=== PATIENT | female | born 1970 | race Caucasian/White ===

== ENCOUNTER 2017-02-25 00:14 | Emergency (ER) | payer MEDICAID ==
[~2017-02-25] VITALS: Ht 162.6 cm; Wt 62.0 kg
[2017-02-25] MEDS ORDERED: KETOROLAC 60MG/2ML VIAL IM ONE (01:15)
[2017-02-25] MEDS ORDERED: HYDROCODONE/ACETAMINOPHEN 5/325MG TABLET PO ONE (02:45)
[2017-02-25 02:50] VITALS: BP 128/77
== END 2017-02-25 04:15 | disposition home or self-care (01) ==
LOC: ER 00:20
DX: S52.502A Unspecified fracture of the lower end of left radius, initial encounter for closed fracture (principal); R11.0 Nausea; W03.XXXA Other fall on same level due to collision with another person, initial encounter; Y93.89 Activity, other specified; Y92.89 Other specified places as the place of occurrence of the external cause; Y99.8 Other external cause status
CPT/HCPCS: 29125; 73070; 73090; 73110; 81025; 96372; 99284; J1885; Z7610; A4565